=== PATIENT | female | born 1990 | race Hispanic/Latino ===

== ENCOUNTER 2024-09-12 17:16 | Emergency (ER) | payer OTHER ==
[~2024-09-12] VITALS: Ht 157.5 cm; Wt 81.4 kg
[2024-09-12 17:47] VITALS: PULSE 85; RESP 18; TEMP 98.6; O2SAT 99
[2024-09-12] MEDS: ONDANSETRON HCL 4 MG ORAL DISINTEGRATING TAB PO ONE (18:08)
[2024-09-12] MEDS ORDERED: NITROFURANTOIN100 MG PO (18:42)
[2024-09-12] MEDS ORDERED: ONDANSETRON ODT4 MG PO (18:42)
[2024-09-12] MEDS: NITROFURANTOIN 50 MG CAP PO ONE (18:45)
== END 2024-09-12 19:07 | disposition home or self-care (01) ==
LOC: FSED 17:20
DX: R11.2 Nausea with vomiting, unspecified (principal); N39.0 Urinary tract infection, site not specified; E11.65 Type 2 diabetes mellitus with hyperglycemia; Z11.52 Encounter for screening for COVID-19
CPT/HCPCS: 0223U; 36415; 82948; 87086; 87186; 87400; 99284; Q0162